=== PATIENT | female | born 1950 | race Caucasian/White ===

== ENCOUNTER → 2024-06-30 | Outpatient (CLI) | payer MEDICARE, OTHER ==
--- NOTE | 2024-06-30 12:41 | CT ---
EXAMINATION TYPE: CT kidney stone wo con CT DLP: 1048.60 mGycm, Automated exposure control for dose reduction was used. DATE OF EXAM: 06/30/2024 10:40 AM COMPARISON: None CLINICAL INDICATION:Female, 74 years old with history of N20.0 CALCULUS OF KIDNEY; Rt flank pain, pos sible renal stone TECHNIQUE: Renal stone protocol CT of the abdomen and pelvis without IV or oral contrast. Lack of IV or oral contrast limits evaluation of solid and hollow organ viscera. Coronal and sagittal reformats were performed. FINDINGS: LOWER CHEST: Cardiomegaly. Mitral annulus calcifications. Coronary calcifications of the RCA. Small l inear scar or atelectasis within the lingula. Median sternotomy wires. ABDOMEN LIVER: Surface nodularity of the liver with widened fissures and posterior notch sign. GALLBLADDER AND BILE DUCTS: The gallbladder is surgically absent. PANCREAS: Lipomatous pseudohypertrophy changes. SPLEEN: Not enlarged but bulky in appearance ADRENAL GLANDS: Unremarkable noncontrast appearance. KIDNEYS AND URETERS: No evidence of hydronephrosis or renal calculus. Mild cortical thinning of both kidneys. No ureteral calculi identified. PELVIS BLADDER: Incompletely distended but grossly unremarkable. REPRODUCTIVE: The uterus is surgically absent. ABDOMEN & PELVIS STOMACH AND BOWEL: Stomach and duodenum are unremarkable. Distal colonic diverticulosis without evide nce for acute diverticulitis. No focal bowel wall thickening or surrounding inflammatory changes. No evidence of bowel obstruction. PERITONEUM: No evidence of pneumoperitoneum or free fluid. VASCULATURE: Mild atherosclerotic calcifications are present throughout the abdominal aorta and its b ranches. No evidence of aortic aneurysm. Pelvic phleboliths. MUSCULOSKELETAL: No acute osseous abnormalities. Moderate disc degeneration changes are present throu ghout the thoracolumbar spine.. No acute osseous abnormality. Collateral vessels within the anterior left upper thigh soft tissues. LYMPH NODES: No gross evidence for lymphadenopathy. SOFT TISSUE/ABDOMINAL WALL: Small fat filled umbilical hernia. Hyperdense focus within the anterior m id lower abdominal wall likely from medication injection. IMPRESSION: 1. No evidence of obstruction uropathy or renal calculi. 2. Findings suspicious for hepatic cirrhosis. Correlate with liver function tests. 3. Colonic diverticulosis without evidence for acute diverticulitis. [facility], , 06/30/2024 12:38 PM
== END | disposition home or self-care (01) ==
LOC: RADCTMAIN 10:14
PROVIDERS: ATTEND Internal Medicine
CPT/HCPCS: 74176